=== PATIENT | female | born 2000 | race Caucasian/White ===

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

== ENCOUNTER 2020-01-11 00:02 | Inpatient (IN) | payer OTHER ==
[~2020-01-11] VITALS: Ht 160 cm; Wt 72.6 kg
[~2020-01-11 00:02] MED LIST: FOLIC ACID0.8 M1; PRENA1 CHEW TA1.4 MG
--- NOTE | 2020-01-11 00:16 | NUR ---
PACXIENTE FEMINA ALERTA Y ORIENTADA CON 8 SEMANAS DE EMBARAZO PRESENTANDO NAUSEAS Y MAREOS Y TUVO GIOVANNY CAIDA EN EL LOIDA DE MENDEZ HOGAR, NO SE ACUERDA DE NADA. PRESENTA DOLOR EN LA DELILAH Y EN LAS ULTIMAS 24 HORAS CHAPA TENIDO MAS DE 10 EPISODIOS DE NAUSEAS. LOS SINTOMAS ESTAN PRESENTE DESDE MARCELLO A LAS 8:00AM
--- NOTE | 2020-01-11 01:45 | NUR ---
PTE ORIENTADO SOBRE EL TX. POR MIS Jaime ROGERS QUIEN EXTRAE MUESTRAS DE JONES BAJO MEDIDAS ASEPTICAS ROTULA Y ENVIA AL LABORATORIO. CANALIZA Y ADMINISTRA MEDICAMENTOS BRITNI ORDEN MEDICA.
--- NOTE | 2020-01-11 08:12 | NUR ---
SE RECIBE PTE ALERTA Y ORIENTADA POR 3, LA CUAL SE ENCUENTRA CON AREA DE VENOPUNCION PATENTE NARDA DE EDEMA Y ENROJECIMIENTO CON IV FLUID PATENTE. LA MISMA SE ENCUENTRA EN ESPERA DE TOLERAR DIETA CLEAR LIQUID DE NO TOLERAR MEDICO DE RAMA DE ER DEBE CONSULTAR CON DR. W[place].
== END 2020-01-13 13:57 | disposition home or self-care (01) | DRG 833 ==
LOC: ER 00:02 → EDBD 00:05 → OB/GYN 09:14
PROVIDERS: ADMIT Obstetrics & Gynecology
PROC: BW40ZZZ Ultrasonography of Abdomen (ICD-10-PCS; principal; 2020-01-11)
PROC: BU46ZZZ Ultrasonography of Uterus (ICD-10-PCS; 2020-01-11)
DX: O21.0 Mild hyperemesis gravidarum (principal); O26.891 Other specified pregnancy related conditions, first trimester; E86.0 Dehydration; E87.8 Other disorders of electrolyte and fluid balance, not elsewhere classified; R10.2 Pelvic and perineal pain

== ENCOUNTER 2020-04-30 12:32 | Outpatient (CLI) | payer OTHER | END 2020-05-01 12:09 | disposition home or self-care (01) | LOC: OBS/DEL 12:32 | PROVIDERS: ATTEND Obstetrics & Gynecology | DX: O26.893 Other specified pregnancy related conditions, third trimester (principal); R10.2 Pelvic and perineal pain; O23.43 Unspecified infection of urinary tract in pregnancy, third trimester ==

== ENCOUNTER 2020-07-21 12:15 | Inpatient (IN) | payer OTHER ==
[~2020-07-21] VITALS: Ht 160 cm; Wt 90.7 kg
== END 2020-08-05 12:07 | disposition home or self-care (01) | DRG 807 ==
LOC: OB/GYN 08-03 06:28 → LDR 08-03 06:28 → OB/GYN 08-03 16:10
PROVIDERS: ADMIT Obstetrics & Gynecology; ATTEND Obstetrics & Gynecology
PROC: 10E0XZZ Delivery of Products of Conception, External Approach (ICD-10-PCS; principal; 2020-08-03)
PROC: 10907ZC Drainage of Amniotic Fluid, Therapeutic from Products of Conception, Via Natural or Artificial Opening (ICD-10-PCS; 2020-08-03)
PROC: 3E033VJ Introduction of Other Hormone into Peripheral Vein, Percutaneous Approach (ICD-10-PCS; 2020-08-03)
PROC: 4A1HXCZ Monitoring of Products of Conception, Cardiac Rate, External Approach (ICD-10-PCS; 2020-08-03)
DX: O99.824 Streptococcus B carrier state complicating childbirth (principal); Z37.0 Single live birth; Z3A.39 39 weeks gestation of pregnancy; Z20.828 Contact with and (suspected) exposure to other viral communicable diseases

== ENCOUNTER 2021-07-06 22:13 | Emergency (ER) | payer OTHER ==
[~2021-07-06] VITALS: Ht 160 cm; Wt 86.6 kg
[2021-07-07] MEDS ORDERED: ZYRTEC10 M2 PO (04:10)
[2021-07-07] MEDS ORDERED: INTESTINEX680 M1 PO (04:10)
== END 2021-07-07 04:18 ==
LOC: ER 22:13
DX: R19.07 Generalized intra-abdominal and pelvic swelling, mass and lump (principal); R09.81 Nasal congestion; Z3A.17 17 weeks gestation of pregnancy

== ENCOUNTER 2021-09-04 08:08 | Outpatient (CLI) | payer OTHER ==
[~2021-09-04 08:08] MED LIST changes: +INTESTINEX680 M1 PO; +ZYRTEC10 M2 PO
== END 2021-09-04 09:00 | disposition home or self-care (01) ==
LOC: PRENATAL 08:08
PROVIDERS: ATTEND Obstetrics & Gynecology Maternal & Fetal Medicine
DX: O35.0XX1 Maternal care for (suspected) central nervous system malformation in fetus, fetus 1 (principal); O35.3XX1 Maternal care for (suspected) damage to fetus from viral disease in mother, fetus 1; O98.512 Other viral diseases complicating pregnancy, second trimester; Z36.89 Encounter for other specified antenatal screening; Z3A.24 24 weeks gestation of pregnancy

== ENCOUNTER 2021-12-06 05:51 | Inpatient (IN) | payer OTHER ==
[~2021-12-06] VITALS: Ht 160 cm; Wt 95.3 kg
== END 2021-12-08 16:10 | disposition home or self-care (01) | DRG 807 ==
LOC: LDR 05:51 → OB/GYN 05:51
PROVIDERS: ADMIT Obstetrics & Gynecology; ATTEND Obstetrics & Gynecology
PROC: 10E0XZZ Delivery of Products of Conception, External Approach (ICD-10-PCS; principal; 2021-12-06)
PROC: 10907ZC Drainage of Amniotic Fluid, Therapeutic from Products of Conception, Via Natural or Artificial Opening (ICD-10-PCS; 2021-12-06)
PROC: 4A1HXFZ Monitoring of Products of Conception, Cardiac Rhythm, External Approach (ICD-10-PCS; 2021-12-06)
DX: O87.2 Hemorrhoids in the puerperium (principal); Z37.0 Single live birth; O99.824 Streptococcus B carrier state complicating childbirth; Z3A.38 38 weeks gestation of pregnancy